=== PATIENT | male | born 1990 | race American Indian/Alaskan Native ===

== ENCOUNTER 2019-08-01 15:14 | Emergency (ER) | payer SELFPAY ==
--- NOTE | 2019-08-01 15:52 | Emergency Department Report ---
Blank Doc - Documentation Documentation: 28-year-old male that abdominal pain with n/v. Also has sinus pain. This initial assessment/diagnostic orders/clinical plan/treatment(s) is/are subject to change based on patient's health status, clinical progression and re- assessment by fellow clinical providers in the ED. Further treatment and workup at subsequent clinical providers discretion. Patient/guardians urged not to elope from the ED as their condition may be serious if not clinically assessed and managed. Initial orders include: 1- Patient sent to [facility] for further evaluation and treatment 2- labs 3- UA
[2019-08-01 16:31] LABS: Hematocrit 48.8 % (35.5-45.6); Hemoglobin 16.4 gm/dl (11.8-15.2); Mean Corpuscular HGB Conc 34 % (32-34); Mean Corpuscular Volume 90 fl (84-94); Platelet Count 170 K/mm3 (140-440); Red Blood Count 5.42 M/mm3 (3.65-5.03); Red Cell Distribution Width 12.5 % (13.2-15.2)
[2019-08-01 16:54] LABS: Alanine Aminotransferase 20 units/L (7-56); Albumin 4.7 g/dL (3.9-5); BUN/Creatinine Ratio 12; Blood Urea Nitrogen 11 mg/dL (9-20); Calcium 9.4 mg/dL (8.4-10.2); Hemolysis Index 15
[2019-08-01 17:36] LABS: Basophils % (Manual) 0 % (0.0-1.8); Total Cells Counted 100
[2019-08-01 17:37] LABS: Anisocytosis Few; Platelet Estimate Consistent w Auto; Poikilocytosis Few
[2019-08-01 18:06] LABS: Bilirubin,Urine NEG (Negative); Blood,Urine NEG (Negative); Color,Urine Yellow (Yellow); Mucus,Urine 1+ /HPF; Urobilinogen,Urine < 2.0 mg/dL (<2.0); WBC,Urine < 1.0 /HPF (0.0-6.0)
[2019-08-01] MEDS ORDERED: KETOROLAC 30 MG/1 ML INJ IV ONE (19:41)
[2019-08-01] MEDS ORDERED: SODIUM CHLORIDE 0.9% 1000 ML 1,000 ML IV ONE (19:41)
[2019-08-01] MEDS ORDERED: ONDANSETRON 4 MG/2 ML INJ IV ONE (19:41)
[2019-08-01] MEDS ORDERED: FAMOTIDINE 20 MG/2 ML INJ IV ONE (19:41)
[2019-08-01 20:35] VITALS: BP 113/72
[2019-08-01] MEDS ORDERED: METOCLOPRAMIDE 10 MG/2 ML INJ IV ONE (22:13)
--- NOTE | 2019-08-01 22:49 | Emergency Department Report ---
ED N/V/D HPI - General Chief complaint: Abdominal Pain Stated complaint: SINUS INFECTION Time Seen by Provider: 08/01/19 15:50 Source: patient Mode of arrival: Wheelchair Limitations: No Limitations - History of Present Illness Initial comments: Patient is a 28-year-old -[place] male with no past medical history who presents to the ED with complaint of acute onset persistent nausea and vomiting, and diarrhea with mild abdominal pain for the last 12 hours after eating from a restaurant 24 hours ago. Patient states that he has not been able to keep anything down since the onset of the symptoms and now feels lightheaded and generalized weakness. Patient also complains of frontal sinus pressure and headache for the last 2 months. Patient states that he has been taking [id number] medication for suspected sinus infection with no relief. Patient denies chest pain, shortness of breath, fever, chills, dizziness, syncope, chest pain or cough. MD complaint: nausea, vomiting, diarrhea, abdominal pain -: Sudden, hour(s) (12) Description of Vomiting: food contents, watery, bilious Description of Diarrhea: water Associated Abdominal Pain: Yes (Mildly diffuse) Location: diffuse Severity: moderate Pain Scale: 5 Quality: aching, dull Consistency: intermittent Improves with: none Worsens with: eating, vomiting Context: possible food poisoning Associated Symptoms: denies other symptoms, myalgias, loss of appetite, malaise, nausea/vomiting. denies: chest pain, cough, diaphoresis, fever/chills, headaches, rash, dysuria, shortness of breath, syncope, weakness, other - Related Data Previous Rx's Medication Instructions Recorded Last Taken Type Amoxicillin [Trimox CAP] 500 mg PO Q8H #30 capsule 08/01/19 Unknown Rx Dicyclomine [Bentyl] 20 mg PO Q6H PRN #20 tablet 08/01/19 Unknown Rx Diphenoxylate/Atropine [Lomotil] 1 - 2 tab PO Q4H PRN #15 tablet 08/01/19 Unknown Rx Ondansetron [Zofran Odt] 4 mg PO Q6HR PRN #20 tab.rapdis 08/01/19 Unknown Rx Allergies Allergy/AdvReac Type Severity Reaction Status Date / Time No Known Allergies Allergy Unverified 08/01/19 15:17 ED Review of Systems ROS: Stated complaint: SINUS INFECTION Other details as noted in HPI Constitutional: denies: chills, fever Eyes: denies: eye pain, eye discharge, vision change ENT: congestion, other (sinus pressure). denies: ear pain, throat pain Respiratory: denies: cough, shortness of breath, wheezing Cardiovascular: denies: chest pain, palpitations Endocrine: no symptoms reported Gastrointestinal: abdominal pain, nausea, vomiting, diarrhea Genitourinary: denies: urgency, dysuria Musculoskeletal: denies: back pain, joint swelling, arthralgia Skin: denies: rash, lesions Neurological: headache. denies: weakness, paresthesias Psychiatric: denies: anxiety, depression Hematological/Lymphatic: denies: easy bleeding, easy bruising ED Past Medical Hx - Past Medical History Previous Medical History?: No - Surgical History Past Surgical History?: No - Social History Smoking Status: Current Every Day Smoker Substance Use Type: Alcohol, Marijuana - Medications Home Medications: Home Medications Medication Instructions Recorded Confirmed Last Taken Type Amoxicillin [Trimox CAP] 500 mg PO Q8H #30 capsule 08/01/19 Unknown Rx Dicyclomine [Bentyl] 20 mg PO Q6H PRN #20 tablet 08/01/19 Unknown Rx Diphenoxylate/Atropine [Lomotil] 1 - 2 tab PO Q4H PRN #15 tablet 08/01/19 Unknown Rx Ondansetron [Zofran Odt] 4 mg PO Q6HR PRN #20 tab.rapdis 08/01/19 Unknown Rx ED Physical Exam - General Limitations: No Limitations General appearance: alert, in no apparent distress - Head Head exam: Present: atraumatic, normocephalic, normal inspection - Eye Eye exam: Present: normal appearance, PERRL, EOMI Pupils: Present: normal accommodation - ENT ENT exam: Present: mucous membranes moist, other (palpable bilateral maxillary sinus tenderness; grossly congested nasal passages) - Neck Neck exam: Present: normal inspection, full ROM - Respiratory Respiratory exam: Present: normal lung sounds bilaterally. Absent: respiratory distress, wheezes, rales, rhonchi, chest wall tenderness, accessory muscle use, decreased breath sounds - Cardiovascular Cardiovascular Exam: Present: regular rate, normal rhythm, normal heart sounds. Absent: systolic murmur, diastolic murmur, rubs, gallop - GI/Abdominal GI/Abdominal exam: Present: soft, normal bowel sounds. Absent: tenderness, rebound, hyperactive bowel sounds, hypoactive bowel sounds - Rectal Rectal exam: Present: deferred - Extremities Exam Extremities exam: Present: normal inspection, full ROM, normal capillary refill - Back Exam Back exam: Present: normal inspection, full ROM. Absent: CVA tenderness (L), muscle spasm, paraspinal tenderness - Neurological Exam Neurological exam: Present: alert, oriented X3, CN II-XII intact, normal gait, reflexes normal - Psychiatric Psychiatric exam: Present: normal affect, normal mood - Skin Skin exam: Present: warm, dry, intact, normal color. Absent: rash ED Course Vital Signs 08/01/19 08/01/19 08/01/19 15:51 16:06 20:34 Temperature 98.1 F 99.5 F Pulse Rate 74 74 78 Respiratory 18 16 18 Rate Blood Pressure 140/86 Blood Pressure 133/92 113/72 [Right] O2 Sat by Pulse 98 100 97 Oximetry ED Medical Decision Making - Lab Data Result diagrams: 08/01/19 16:02 08/01/19 16:02 - Medical Decision Making This is a 28-year-old male with no past medical history who presented to the ED with nausea, vomiting, diarrhea and mild diffuse abdominal pain after eating at a restaurant. Patient also complained of persistent frontal and maxillary sinus pressure and pain with a headache for 2 months. In the ED, patient is alert and oriented 3 and is not in distress with normal vital signs. Lab test results were reviewed and on nonactionable. Patient was treated for nausea and vomiting and also given normal saline 1 L IV bolus. On reevaluation, patient nausea and vomiting resolved patient feeling better and is able to keep all oral fluids in the ED. Patient was discharged home on medications and advised to follow-up with his primary care physician in 5-7 days for reevaluation, meanwhile he was advised to maintain a clear liquid diet for 12-24 hours. Patient was therefore advised to return to the ED immediately if symptoms get worse. - Differential Diagnosis viral gastroenteritis; sinus headache; sinusitis; dehydration Critical care attestation.: If time is entered above; I have spent that time in minutes in the direct care of this critically ill patient, excluding procedure time. ED Disposition Clinical Impression: Nausea, vomiting and diarrhea, Viral gastroenteritis, Acute recurrent maxillary sinusitis Disposition: TO HOME OR SELFCARE Is pt being admited?: No Does the pt Need Aspirin: No Condition: Stable Instructions: Acute Nausea and Vomiting (ED), Gastroenteritis (ED), Acute Bacterial Rhinosinusitis (ED) Additional Instructions: Maintain a clear liquid diet for 12-24 hours, drink plenty of fluids and take medication, and follow-up with your primary care physician in 5-7 days for reevaluation. Return to the ED immediately if symptoms get worse. Prescriptions: Dicyclomine [Bentyl] 20 mg PO Q6H PRN #20 tablet PRN Reason: Pain , Severe (7-10) Diphenoxylate/Atropine [Lomotil] 1 - 2 tab PO Q4H PRN #15 tablet PRN Reason: Diarrhea Amoxicillin [Trimox CAP] 500 mg PO Q8H #30 capsule Ondansetron [Zofran Odt] 4 mg PO Q6HR PRN #20 tab.rapdis PRN Reason: Nausea Referrals: [facility] [Outside] - 3-5 Days Time of Disposition: 22:49 Print Language: ICELANDIC
== END 2019-08-01 23:31 | disposition home or self-care (01) ==
LOC: ED 15:14
DX: A08.4 Viral intestinal infection, unspecified (principal); J01.01 Acute recurrent maxillary sinusitis; R11.2 Nausea with vomiting, unspecified; F17.200 Nicotine dependence, unspecified, uncomplicated; F10.10 Alcohol abuse, uncomplicated; F12.10 Cannabis abuse, uncomplicated; Z79.899 Other long term (current) drug therapy
CPT/HCPCS: 36415; 80053; 81001; 83690; 85007; 85025; 96361; 96374; 96375; 99284; J1885; J2405; J2765; J7030